=== PATIENT | female | born 1955 | race Caucasian/White ===

== ENCOUNTER 2016-09-26 18:30 | Emergency (ER) | payer BC ==
[2016-09-26 18:35] VITALS: BP 131/73; TEMP 98.2; BMI 23.6
--- NOTE | 2016-09-26 19:46 | PDOC ---
History of Present Illness - General History Source: Patient Exam Limitations: No Limitations - History of Present Illness Initial Comments: 09/26/16 19:53 The patient is a 60 year old female with no significant past medical history who presents to the ED with bilateral arm numbness and tingling few hours prior to arrival. Patient reports she was in her usual state of health when she was on the train on her way home and suddenly her chest felt constricted with associated bilateral arm numbness/tingling and palpitations. Denies diaphoresis , lightheadedness, chest pain, SOB, jaw pain, nausea, or vomiting. She states never experiencing this in the past before. Denies any sick contacts, travels, or oral contraceptives. At time of evaluation, her chest discomfort and palpitations has resolved, however she is still has complaints of bilateral arm numbness and tingling. The patient denies fever, chills, cough, abdominal pain, and diarrhea. The patient denies dysuria, hematuria, urgency, and frequency. Allergies: NKDA Social History: No alcohol, tobacco, or drug use reported. Past Surgical History: None reported PCP: Dr. Mendoza Clifford <Abbie Maravilla - Last Filed: 09/26/16 19:53> - General History Source: Patient <SergioLouie angeles - Last Filed: 09/26/16 21:14> - General Chief Complaint: Palpitations Stated Complaint: NUMBNESS Time Seen by Provider: 09/26/16 19:35 Past History <Abbie Maravilla - Last Filed: 09/26/16 19:53> - Past Medical History Other medical history: NONE - Psycho/Social/Smoking Cessation Hx Anxiety: No Suicidal Ideation: No Smoking History: Never smoked Have you smoked in the past 12 months: No Information on smoking cessation initiated: No Hx Alcohol Use: No Drug/Substance Use Hx: No Substance Use Type: None <Louie Schrader - Last Filed: 09/26/16 21:14> - Past Medical History Allergies/Adverse Reactions: Allergies Allergy/AdvReac Type Severity Reaction Status Date / Time No Known Allergies Allergy Verified 09/26/16 18:32 Review of Systems - Review of Systems Able to Perform ROS?: Yes Comments:: 09/26/16 19:53 CONSTITUTIONAL: Absent: fever, no chills, no fatigue EYES: Absent: visual changes ENT: Absent: ear pain, no sore throat CARDIOVASCULAR: +chest discomfort, palpitations Absent: chest pain RESPIRATORY: Absent: cough, no SOB GI: Absent: abdominal pain, no nausea, no vomiting, no constipation, no diarrhea GENITOURINARY: Absent: dysuria, no frequency, no hematuria MUSCULOSKELETAL: Absent: back pain, no arthralgia, no myalgia SKIN: Absent: rash NEURO: +bilateral arm numbness and tingling Absent: headache <RenitaAbbie - Last Filed: 09/26/16 19:53> *Physical Exam - Vital Signs Last Vital Signs Temp Pulse Resp BP Pulse Ox 98.2 F 84 18 131/73 100 09/26/16 18:32 09/26/16 18:32 09/26/16 18:32 09/26/16 18:32 09/26/16 18:32 - Physical Exam Comments: 09/26/16 19:54 GENERAL: Well-appearing, well-nourished. No apparent distress. HEENT: Normocephalic, atraumatic. PERRL, EOM intact. CARDIOVASCULAR: Normal S1, S2. Regular rate and rhythm. PULMONARY: Clear to auscultation bilaterally. ABDOMEN: Soft, non-distended, non-tender. EXTREMITIES: Normal ROM in all four extremities. No gross deformities. SKIN: Warm, dry. No rash NEUROLOGICAL: No focal neurological deficits. <JakiyonyAbbie - Last Filed: 09/26/16 19:53> - Vital Signs Last Vital Signs Temp Pulse Resp BP Pulse Ox 98.2 F 84 18 131/73 100 09/26/16 18:32 09/26/16 18:32 09/26/16 18:32 09/26/16 18:32 09/26/16 18:32 <Louie Schrader - Last Filed: 09/26/16 21:14> Heart Score/ECG Review - ECG Impressions Comment:: 09/26/16 19:54 NSR @76bpm Normal ECG <RenitaAbbie - Last Filed: 09/26/16 19:53> ED Treatment Course - LABORATORY CBC & Chemistry Diagram: 09/26/16 19:49 09/26/16 19:49 <Louie Schrader - Last Filed: 09/26/16 21:14> Medical Decision Making - Medical Decision Making 09/26/16 21:12 Dr. Schrader: The scribe's documentation has been prepared under my direction and personally reviewed by me in its entirery. I confirm that the note above accurately reflects all work, treatment, procedures, and medical decision making performed by me. Pt symptoms are gone. Labs and EKG are all normal. Pt hemodynamically stable. Will discharge pt. <Louie Schrader - Last Filed: 09/26/16 21:14> *DC/Admit/Observation/Transfer - Attestations Scribe Attestion: 09/26/16 19:54 Documentation prepared by Abbie Maravilla, acting as biomedical engineering aide for Louie Schrader MD <Abbie Maravilla - Last Filed: 09/26/16 19:53> - Discharge Dispostion Admit: No <Louie Schrader - Last Filed: 09/26/16 21:14> Diagnosis at time of Disposition: Palpitations - Discharge Dispostion Disposition: HOME Condition at time of disposition: Stable - Referrals Referrals: Mendoza Clifford [Primary Care Provider] - - Patient Instructions Printed Discharge Instructions: DI for Palpitations Additional Instructions: Please follow up with your doctor if symptoms persists. Return if any problems
[2016-09-26 20:32] LABS: BASOPHIL 0.3 % (0-2.0); EOSINOPHIL 2.2 % (0-4.5); MCH 31.2 pg (25.7-33.7); MCHC 34.1 g/dl (32.0-36.0); MEAN CELL VOLUME 91.6 fl (80-96); MEAN PLT VOLUME 7.2 fl (7.5-11.1); NEUTROPHILS 63.3 % (42.8-82.8); PLATELET COUNT 374 K/MM3 (134-434); RDW 12.7 % (11.6-15.6); WHITE BLOOD COUNT 8.8 K/mm3 (4.0-10.0)
[2016-09-26 20:39] LABS: INR 0.96 (0.82-1.09); PROTHROMBIN TIME (PATIENT) 10.6 SEC (9.98-11.88)
[2016-09-26 20:47] LABS: ALBUMIN 3.9 g/dl (3.4-5.0); ANION GAP 12 (8-16); BILIRUBIN,TOTAL 0.3 mg/dL (0.2-1.0); CALCIUM 9.1 mg/dL (8.5-10.1); CO2 26 mmol/L (21-32); CREATININE 0.7 mg/dL (0.55-1.02); GLUCOSE,RANDOM 92 mg/dL (74-106); MAGNESIUM 2.3 mg/dL (1.8-2.4); SGOT/AST 14 U/L (15-37); SGPT/ALT 21 U/L (12-78); TOT PROT 7.2 g/dl (6.4-8.2)
[2016-09-26 20:50] LABS: ALK PHOS 74 U/L (45-117); TROPONIN I < 0.02 ng/ml (0.00-0.05)
[2016-09-26 21:22] VITALS: PULSE 62
--- NOTE | 2016-09-27 09:51 | EKG ---
Test Reason : Blood Pressure : / mmHG Vent. Rate : 076 BPM Atrial Rate : 076 BPM P-R Int : 132 ms QRS Dur : 080 ms QT Int : 392 ms P-R-T Axes : 073 053 037 degrees QTc Int : 441 ms NORMAL SINUS RHYTHM NORMAL ECG NO PREVIOUS ECGS AVAILABLE Confirmed by JONE ANGLIN, KACY ([id number]) on 09/27/2016 9:51:18 AM Referred By: Confirmed By:KACY BECERRIL MD
== END 2016-09-26 21:22 | disposition home or self-care (01) ==
LOC: JER 18:30
DX: R00.2 Palpitations (principal)
CPT/HCPCS: 36415; 71020-TC; 80053; 82550; 83735; 83880; 84484; 84703; 85025; 85610; 93005; 93010; 99283-25